=== PATIENT | female | born 2005 ===

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

== ENCOUNTER → 2024-09-13 | Outpatient (REF) | payer OTHER ==
[~2024-09-13] MED LIST: PREN1TAB11 PO
== END ==
LOC: M LAB REF 14:10
PROVIDERS: ATTEND Physician Assistant
DX: B34.9 Viral infection, unspecified (principal)